=== PATIENT | male | born 1955 | race Caucasian/White ===

== ENCOUNTER 2016-12-31 03:28 | Observation (INO) | payer BC ==
[~2016-12-31] VITALS: Ht 182.9 cm; Wt 92.7 kg
[~2016-12-31 03:28] MED LIST: AMLODIPINE BESYL5 MG PO; ASPIRIN EC81 MG PO; METFORMIN HCL1000 MG PO; NIACIN500 M1 PO; SIMVASTATIN20 MG PO
--- NOTE | 2016-12-31 06:59 | NUR ---
PATIENT ARRIVED TO THE FLOOR VIA WHEELCHAIR. PATIENT WALKED FROM WHEELCHAIR TO BED. PATIENT IS STEADY ON HIS FEET. PATIENTS INTAKE COMPLETED. PATIENT DENIES ANY PAIN OR NAUSEA. PATIENT ORIENTED TO FLOOR AND ROOM. PATIENT DENIES ANY NEEDS AT THIS TIME. CALL LIGHT IN REACH.
--- NOTE | 2016-12-31 07:28 | EKG ---
[facility] [address] [facility] [place], [place] [address] Signed Normal sinus rhythm Right bundle branch block Abnormal ECG No previous ECGs available Confirmed by NUVIA YEPEZ MD ([id number]) on 12/31/2016 7:28:32 AM Electronically Signed By: NUVIA YEPEZ MD 12/31/16 0728 PATIENT NAME: TOREY RIVAS Electrocardiogram DATE OF : 53 PHYSICIAN: NUVIA YEPEZ MD REPORT #: [id number] REPORT IS CONFIDENTIAL AND NOT TO BE RELEASED WITHOUT AUTHORIZATION
--- NOTE | 2016-12-31 09:00 | NUR ---
DR. FARLYE TO FLOOR, NEW ORDERS FOR SURGERY AT NOON. NO COMPLAINTS OF PAIN. AT THIS TIME. CONSENT SIGNED AND ON CHART. FULL BODY ASSESMENT DONE.
[2016-12-31] MEDS ORDERED: GLIPIZIDE ER2.5 MG PO (10:55)
--- NOTE | 2016-12-31 10:55 | NUR ---
MED REC COMPLETE
--- NOTE | 2016-12-31 11:54 | NUR ---
YESENIA CBG 76 AT NOON. NOTIFIED TIGRE CAMPOS ON STRAIGHT TUBING NOW HANGING INSTEAR OF LR PER DR. FARLEY. NEW ORER FOR ONE TIME HEPARIN AND ENCEF. PATIENT ATTEMPTED TO URINATE BEFORE LEAVING WAS IMABLE TO. BOLUS COMPLETED. NO COMPLAINTS OF PAIN. HANDOFF TO VIN ROGERS. PATIENT LEFT TO SURGERY @ 6306.
--- NOTE | 2016-12-31 13:19 | NUR ---
12/31/16 1319 Deidre German PT REPOSITIONS SELF IN BED AND TOLERATES MOVEMENT WELL. PT DENIES PAIN AND FALLS QUICKLY TO SLEEP.
--- NOTE | 2016-12-31 14:35 | NUR ---
PATIENT HAS JUST RETURNED FROM SURGERY, HE IS ON POST-OP VITAL SIGNS.
--- NOTE | 2016-12-31 15:14 | NUR ---
PATIENT STATES, " I AM FEELING BETTER, THE ICE REALLY HELPED." 2/10 ON PAIN SCALE. DENIES NEED FOR PAIN MEDS AT THIS TIME. VS STABLE. PATIENT STILL DROWSY RESTING WITH EYES CLOSED. STERI STRIPS TO INSCISION SITES HAVE SOME SEROSANGUINIOUS DRAINAGE. PATIENT SIPPING ON ICE WATER. D5LR@85ML/HR. ANSWERED QUESTIONS AND CONCERNS.
--- NOTE | 2016-12-31 18:21 | NUR ---
ADMINSTERED 1 TAB OF PERCOCET, PATIENT REPORTED GOOD PAIN RELIEF, HOWEVER AFTER GETTING UP TO BATHROOM AND VOIDING PATIENT REQUESTED ANOTHER TAB OF PERCOCET. ADMINISTERED 2 TABS TOTAL. PATIENT SITTING UP IN RECLINER, PROVIDED EDUCATION WITH PARVEZ DRAIN. PATIENT DRINKING WELL SL. ORDERED DINNER, PATIENT APPEARS AAOX3. NO NEW DRAINAGE TO STERISTRIPS, ABDOMEN APPEARS SOFT. BOWEL TONES ACTIVE, LUNG SOUNDS CLEAR. PATIENT HAS DAUGHTER IN ROOM, AND AGREES TO WALK IN HALLS AFTER DINNER.
--- NOTE | 2016-12-31 19:36 | NUR ---
RECIEVED REPORT FROM DAY SHIFT NURSE. PT RESTING IN BED USING INCENTIVE SPIROMETER. STATES HE IS IN NO PAIN EXCEPT FOR WHEN HE MOVES. LAP SITES WNL-MINIMAL BLOODY DRAINAGE. PT DENIES NEEDS AT THIS TIME. CALL LAUREN IN REACH.
--- NOTE | 2016-12-31 21:34 | NUR ---
PT RESTING IN BED. NO C/O OF PAIN. ACTIVE BS. PASSING "A LITTLE" FLATUS. LAP SITES WNL-NO S/S OF INFECTION. DISTAL LAP SITE BLOODY DRAINAGE-STERISTRIPS LIFTING. COVERED WITH NONADHERENT PAD AND KERLEX. EMPTIED SEROUS FLUID FROM PARVEZ DRAIN. MODERATE AMOUNT OF SHADOWING ON DRESSING OVER PARVEZ DRAIN. PT DENIES NEEDS AT THIS TIME. CALL LAUREN IN REACH.
--- NOTE | 2016-12-31 23:17 | NUR ---
PT SLEEPING. CALL LAUREN IN REACH.
--- NOTE | 2017-01-01 01:02 | NUR ---
PT RESTING IN BED. C/O ABDOMINAL PAIN 09/16. 2 PERCOCET ADMINISTERED. REFILLED WATER PITCHER. PT DENIES FURTHER NEEDS.
--- NOTE | 2017-01-01 02:08 | NUR ---
PT ONLY VOIDED ABOUT 75CC IN 4 HOURS. RESTARTED IVF. ENCOURAGED PT TO DRINK, ABLE TO DRINK PITCHER OF WATER. WILL CALL MD BY 3 IF HE DOES NOT VOID AGAIN.
--- NOTE | 2017-01-01 03:19 | NUR ---
PT HAD 75MM OF URINE IN HIS URINAL AT 0315
--- NOTE | 2017-01-01 03:21 | NUR ---
PT ABLE TO VOID ANOTHER 75CC. IVF STILL INFUSING. CALL LAUREN IN REACH.
--- NOTE | 2017-01-01 05:34 | NUR ---
PT RESTING IN BED. DENIES NEEDS. CALL LAUREN IN REACH.
--- NOTE | 2017-01-01 06:15 | NUR ---
PT C/O ABDOMINAL PAIN. STATES IT IS BECOMING MORE MILD. 2 TAB PERCOCET ADMINISTERED. PT AMBULATING HALLS INDEPENDENTLY. STATES HE IS PASSING FLATUS. DENIES NEEDS.
--- NOTE | 2017-01-01 06:39 | NUR ---
PT HAD A GOOD NIGHT. SLEPT ON AND OFF. PAIN CONTROLLED WITH 2 PERCOCET Q6H. DRAINAGE TO PARVEZ DRESSING, DRESSING CHANGED THIS MORNING. LIKELY D/C HOME TODAY. NO NAUSEA. PT AMBULATING HALLWAY.
[2017-01-01] MEDS ORDERED: OXYCODON-ACETA1 EAC2 PO (07:18)
--- NOTE | 2017-01-01 07:20 | NUR ---
BEDSIDE REPORT. PT ALERT AND ORIENTED AT THIS TIME, REPORTS NO PAIN OR NAUSEA. AT THIS TIME.
--- NOTE | 2017-01-01 10:40 | NUR ---
DISCHARGE EDUCATION GIVEN WITH DISCHARGE PACKET, DAUGHTER IN ROOM FOR EDUCATIONS. ON ACTIVITY RESTRICTIONS, NO DRIVING WHILE TAKING NARCOTIC PAIN MEDICATIONS. POST OP TEACHING, ACTIVITY RESTRICTIONS, WHEN TO SEEK MEDCIAL ATTENTION, OK TO SHOWER TOMORROW, MEDICATIONS EDU. LAST DOSE NEXT DOSE. OK TO TAKE LESS PAIN MEDICATION PAIN LESSENS AND TO DRINK PLENTY OF WATER AND WALK REGULAR. PT AND DAUGHTER ABLE TO VERBALIZE BACK INSTRUCTIONS/EDUCATIONS
--- NOTE | 2017-01-13 13:40 | HP ---
[facility] [address] [place], [place] [address] Signed DATE OF ADMISSION: 12/31/16 REASON FOR ADMISSION: Acute calculous cholecystitis. HISTORY This 61-year-old white man has underlying diabetes and has had episodic, epigastric, and right subcostal pain following meals. Last night at midnight, he had the onset of severe and unrelenting epigastric pain. He presented to the emergency room and was evaluated by Dr. Rider in detail where an EKG was normal and evaluation for his abdominal pain include a gallbladder ultrasound, which showed thickened gallbladder wall, gallstones, and a positive sonographic Barahona's sign, all consistent with acute cholecystitis. The EKG showed no ischemic changes and he had a right bundle branch block. His liver enzymes were normal. Lipase was normal as well. He was admitted for further evaluation and care for acute calculous cholecystitis. PAST MEDICAL HISTORY Notable for diabetes mellitus, hypertension, and dyslipidemia. CURRENT MEDICATIONS Include Metformin 1000 mg p.o. daily, Amlodipine 5 mg p.o. daily, Simvastatin 20 mg daily, and Aspirin 81 mg a day. ALLERGIES: He has no known drug allergies. SOCIAL HISTORY He does not smoke or drink alcohol. He is accompanied by his daughter. He works at [employer]. REVIEW OF SYSTEMS He denies any shortness of breath or chest pain. Denies any lower abdominal pain. His pain is mostly in the epigastric and right subcostal area. PHYSICAL EXAMINATION GENERAL: Pleasant white man who looks to be not systemically toxic at this time. NECK: Trachea is midline. He has no hoarseness. Mucous membranes are slightly dry. CHEST: Clear. HEART: Regular without murmur. ABDOMEN: Nondistended. There is mild tenderness in epigastric and subcostal area. There is no palpable mass. He has no ascites. EXTREMITIES: Show no clubbing, cyanosis, or edema. Electronically Signed By: CESAR FARLEY MD 01/13/17 1340 PATIENT NAME: TOREY RIVAS HISTORY AND PHYSICAL DATE OF : 53 PHYSICIAN: CESAR FARLEY MD REPORT #: [id number] REPORT IS CONFIDENTIAL AND NOT TO BE RELEASED WITHOUT AUTHORIZATION [facility] [address] [place], [place] [address] Signed LAB STUDIES Showed a white count of 13.1, hematocrit 42.8, platelets 279,000 electrolytes normal except for creatinine slightly elevated at 1.15. Liver enzymes are normal. Alkaline phosphatase 88, bilirubin 0.7, lipase 42. ASSESSMENT The patient has acute calculous cholecystitis for which he has been admitted and initiated on antibiotics and intravenous fluids. I would recommend consideration for cholecystectomy. We discussed in detail the pathophysiology of acute calculus cholecystitis with use of illustrations and so on. His daughter who is with him today has undergone cholecystectomy by me in the past as well. The risks of bleeding, infection, bile duct injury, need for open procedure, need for common duct exploration, and so forth were all reviewed in detail. He understands. PLAN We will continue with fluid administration, IV antibiotics, parenteral pain medication. He is anticipating cholecystectomy today. MD LIZZIE Finnegan/Dax /[id number] cc: MD Ernestina Smart MD Electronically Signed By: CESAR FARLEY MD 01/13/17 1340 PATIENT NAME: TOREY RIVAS HISTORY AND PHYSICAL DATE OF : 53 PHYSICIAN: CESAR FARLEY MD REPORT #: [id number] REPORT IS CONFIDENTIAL AND NOT TO BE RELEASED WITHOUT AUTHORIZATION
--- NOTE | 2017-01-13 13:40 | OR ---
[facility] [address] [place], [place] [address] Signed DATE OF PROCEDURE: 12/31/16 PREOPERATIVE DIAGNOSES Acute calculous cholecystitis. [id number]-[id number] diabetes mellitus. POSTOPERATIVE DIAGNOSES Acute calculous cholecystitis. Gtu-eypbiqd-qdlovtwab diabetes mellitus. PROCEDURE Laparoscopic cholecystectomy with intraoperative cholangiogram. Surgeon directed fluoroscopy. SURGEON: Cesar Farley MD. ANESTHESIA General endotracheal (Trace Cortes CRNA) and local 20 mL of 0.25% Marcaine with Epinephrine. INDICATION This 59-year-old whit e man was seen at about midnight through the emergency room with severe epigastric and right subcostal pain. He was diagnosed with acute cholecystitis after gallbladder ultrasound was performed showing thickened gallbladder wall and several gallstones. His liver enzymes are normal. He has been fluid resuscitated and given intravenous antibiotics and is admitted to undergo cholecystectomy preferred by a laparoscopic approach. He understands as does his daughter who accompanies him the risks of bleeding, infection, bile duct injury, need for open procedure, and other unforeseen complications. Understanding this, he wished to proceed. FINDINGS The gallbladder was acutely inflamed and distended enough to decompression required. Using needle decompression, non-green bile was noted. This is indicative of cystic duct obstruction obviously. Cholangiogram was normal. The gallbladder was completely excised without problem. There is no sign of neoplasm of mucosa, several large 1 and 0.5 cm gallstones were noted. The liver was normal overall. PROCEDURE IN DETAIL The patient was brought to the operating room, given a general endotracheal anesthetic. Preoperative antibiotic Ancef was given. Sequential compression device stockings used and heparin subcutaneously administered. The abdomen was clipped and prepared with Electronically Signed By: CSEAR FARLEY MD 01/13/17 1340 PATIENT NAME: TOREY RIVAS OPERATIVE REPORT DATE OF : 53 PHYSICIAN: CESAR FARLEY MD REPORT #: [id number] REPORT IS CONFIDENTIAL AND NOT TO BE RELEASED WITHOUT AUTHORIZATION [facility] [address] [place], [place] [address] Signed Chlorhexidine solution and draped sterilely. An infraumbilical incision was made and using an open Sreekanth cannula technique, pneumoperitoneum was achieved at level of 14 mmHg with carbon dioxide gas. Intraabdominal inspection showed no sign of ascites or carcinomatosis. The gallbladder was obscured from view initially. Three additional trocars were placed, and the gallbladder was ultimately identified and found to be markedly distended and quite inflamed. It could not be grasped easily, and on that basis, needle decompression was undertaken showing clear bile. The puncture site was grasped and elevated cephalad and using lateral retraction on the gallbladder the triangle of Calot was dissected free using electrocautery and blunt dissection. Markedly edematous peritoneal lining of the gallbladder was noted. Ultimately, the cystic artery and cystic duct were well identified. The cystic duct was moderate in size. The clips were applied across the cystic artery. The artery was not divided at this point. A clip was applied across gallbladder cystic duct junction and a transverse choledochotomy made in the cystic duct. Retrograde milking of the cystic duct ultimately did show normal appearing bile. Using the Sandoval type cholangiocatheter, intraoperative cholangiography was undertaken showing free flow of contrast in biliary tree with prompt emptying into the duodenum. There was good retrograde filling. There was no sign of filling defect or biliary anomaly. The cystic duct was moderate in length. The catheter was removed, the cystic duct was triply clipped and divided. The gallbladder dissected free in a retrograde fashion using electrocautery. Given the extent of inflammation and so forth, an Endobag was used to extract the gallbladder through the infraumbilical port site. The gallbladder was opened on the back table, found have chronic inflammatory change as well as acute inflammation, no sign of neoplasm, and several large gallstones about 1.5 cm to 2 cm in size. Irrigation was undertaken in the subhepatic space. There was no sign of bile leak or bleeding; however, given the extent of inflammation, a drain was placed in the subhepatic space through right-sided trocar site and secured the skin with a nylon suture. Excess irrigation fluid was suctioned free and the trocars were removed under direct visualization showing no sign of bleeding. The infraumbilical fascial incision was reapproximated with interrupted 0 Vicryl suture. All wounds copiously irrigated with saline solution. Skin closed with interrupted 3-0 Vicryl. Steri-Strips were applied. The patient was ultimately extubated and transferred to recovery room in good condition and suffered no complication. Sponge, needle, and counts were correct x3. MD LIZZIE Finnegan/Dax Electronically Signed By: CESAR FARLEY MD 01/13/17 1340 PATIENT NAME: TOREY RIVAS OPERATIVE REPORT DATE OF : 53 PHYSICIAN: CESAR FARLEY MD REPORT #: [id number] REPORT IS CONFIDENTIAL AND NOT TO BE RELEASED WITHOUT AUTHORIZATION [place] [id number] Signed /[id number] cc: MD Ernestina Smart MD Electronically Signed By: CESAR FARLEY MD 01/13/17 1340 PATIENT NAME: TOREY RIVAS OPERATIVE REPORT DATE OF : 53 PHYSICIAN: CESAR FARLEY MD REPORT #: [id number] REPORT IS CONFIDENTIAL AND NOT TO BE RELEASED WITHOUT AUTHORIZATION
== END 2017-01-01 10:38 | disposition home or self-care (01) ==
LOC: ED 03:28 → MS 03:29
PROVIDERS: ADMIT Surgery
PROC: BF101ZZ Fluoroscopy of Bile Ducts using Low Osmolar Contrast (ICD-10-PCS; 2016-12-31)
PROC: 0FT44ZZ Resection of Gallbladder, Percutaneous Endoscopic Approach (ICD-10-PCS; principal; 2016-12-31 11:25)
DX: K80.12 Calculus of gallbladder with acute and chronic cholecystitis without obstruction (principal); I10 Essential (primary) hypertension; E11.9 Type 2 diabetes mellitus without complications; I45.10 Unspecified right bundle-branch block; E78.5 Hyperlipidemia, unspecified; Z79.82 Long term (current) use of aspirin; Z79.84 Long term (current) use of oral hypoglycemic drugs; Z79.899 Other long term (current) drug therapy
CPT/HCPCS: 00790; 74300; 76705; 80053; 81001; 83690; 84484; 85025; 93005; 93010; 96361; 96372; 96374; 96375; 96376; 99285; G0378; J0690; J1170; J1644; J1885; J2405; J2704; J3010; J7040; J7120; Q9967

== ENCOUNTER 2024-11-05 17:51 | Emergency (ER) | payer OTHER, MEDICARE ==
[~2024-11-05] VITALS: Ht 182.9 cm; Wt 81.6 kg
[~2024-11-05 17:51] MED LIST changes: +GLIPIZIDE ER2.5 MG PO; +OXYCODON-ACETA1 EAC2 PO
[2024-11-05] MEDS ORDERED: DIPHTH,PERTUSS(ACELL),TET VAC 0.5 ML SYRINGE IM ONE (19:30)
[2024-11-05] MEDS ORDERED: CEPHALEXIN500 M1 PO (19:43)
[2024-11-05] MEDS ORDERED: CEPHALEXIN MONOHYDRATE 500 MG CAP PO ONE (19:45)
[2024-11-05 19:54] VITALS: BP 135/78
== END 2024-11-05 19:56 | disposition home or self-care (01) ==
LOC: ED 17:51
DX: S01.21XA Laceration without foreign body of nose, initial encounter (principal); S01.511A Laceration without foreign body of lip, initial encounter; I10 Essential (primary) hypertension; E11.9 Type 2 diabetes mellitus without complications; W01.0XXA Fall on same level from slipping, tripping and stumbling without subsequent striking against object, initial encounter
CPT/HCPCS: 12014; 90471; 90715; 99282-25; A9270